=== PATIENT | male | born 1970 | race American Indian/Alaskan Native ===

== ENCOUNTER 2017-05-04 13:18 | Outpatient (CLI) | payer OTHER ==
--- NOTE | 2017-05-06 08:35 | Magnetic Resonance Report ---
MR LOWER EXTREMITY JOINT RIGHT WITHOUT CONTRAST History: Right knee pain. Technique: Multiple T1 and T2-weighted images with and without fat suppression were obtained through the right knee. Comparison: None. Findings: A large joint effusion extends to the suprapatellar bursa. A popliteal cyst is also identified measuring 3.8 x 1.6 x 1.9 cm. The body and posterior horn the medial meniscus are abnormal. There is an oblique tear of the posterior horn medial meniscus extending to the posterolateral free edge of and tibial articular surface. There appears to be slight fragmentation of the meniscus in the mid body region. The lateral meniscus is within normal limits. The ACL, PCL, MCL, LCL complex and extensor complex are intact. Mild to moderate osteoarthritic changes are developing in the medial compartment. There is advanced cartilage thinning and irregularity in the medial compartment. An approximate 1 cm osteochondral defect is identified in the posterior medial femoral condyle. No unstable fragment identified. The lateral compartment demonstrates mild cartilage thinning. A focal retropatellar cartilage defect is identified on axial proton density fat sat image 28. This is approximately 50% thickness in the medial patellar facet. Impression: Large joint effusion and popliteal cyst. Complex tear in the body and posterior horn of the medial meniscus. Osteochondral defect in the posterior medial femoral condyle. Retropatellar cartilage defect as described.
== END 2017-05-04 13:19 | disposition home or self-care (01) ==
LOC: MRI 13:18
PROVIDERS: ATTEND Internal Medicine
DX: S83.231A Complex tear of medial meniscus, current injury, right knee, initial encounter (principal); M17.11 Unilateral primary osteoarthritis, right knee; M25.861 Other specified joint disorders, right knee; E78.2 Mixed hyperlipidemia; E11.9 Type 2 diabetes mellitus without complications; Z18.89 Other specified retained foreign body fragments; X58.XXXA Exposure to other specified factors, initial encounter; Y93.89 Activity, other specified; Y92.89 Other specified places as the place of occurrence of the external cause; Y99.8 Other external cause status
CPT/HCPCS: 73721